=== PATIENT | female | born 1995 | race American Indian/Alaskan Native ===

== ENCOUNTER 2018-01-04 17:46 | Inpatient (IN) | payer MEDICAID ==
[2018-01-04 18:20] VITALS: BMI 21.9
[2018-01-04] MEDS ORDERED: Penicillin G 5 Million Unit Vial IVPB ONE (20:43)
--- NOTE | 2018-01-04 20:54 | OBADHP ---
Datetime: 01/04/2018 20:49 Admit Comment, IP Provider: @ 39.1 wks GA sent by clinic as pt had US BPP done a few days ago w ith BPP 04/21. Pt was instracuted to come to hospital for further monitoring. Pt dneis any ctx, lof, vb , +FM. Pt dneis anyehadceah, blurry vision, ruq/epigastric pain. During evaluatin pt was noted to hav e elevated bps up to and over 140/90s wtih repeat bpp 04/21. 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 hx of abnorma pap, fiborid, ovarin cyst, STI PMH: denies PSH: denies MEDS: pnv NKDA SHX: negative etoh/tboacc/drugs A/P @ 39.1 wks GA with elevated bloodpressure preecalmspia vs gestatina htn -admit to L+D -npo, ivf -admsisin, pih labs -cont toco adn efm -cervidl iol r/b/a/i dw patient -pain namangnet -bp parameters Pelvic Type - PN: Adequate Extremities - PN: Normal Abdomen - PN: Normal Back - PN: Normal Breast - PN: Not Done Lungs - PN: Normal Heart - PN: Normal Thyroid - PN: Not Done Neurologic - PN: Normal HEENT - PN: Normal General - PN: Normal Presentation-Admit: Vertex FHR - Baseline A Provider: 135 Membranes, Provider: Intact Contraction Comments Provider: irregular Gestation - Est Wks by US: 39.1 Vital Signs Provider: Reviewed Vital Signs Provider Details: BP elevated 130-142/80-90s IP Chief Complaint: Other NICHD Variability Prov Fetus A: Moderate 6-25bpm FHR Category Provider Fetus A: Category I NICHD Decel Fetus A IP Provider: None Dilatation, Provider: 0 Effacement, Provider: 0 Station, Provider: -3 Genitourinary Exam: Normal DTRs - PN: Normal EGA AdmitDate IP: 39.1 IP Adm Impression: Term, intrauterine IP Admit Plan: Admit to unit; Initiate labor induction protocol
[2018-01-04] MEDS ORDERED: Nalbuphine 20 mg/ml Inj (1 ml) IVP PRN (21:00)
--- NOTE | 2018-01-04 21:00 | US ---
EXAM: US After First Trimester, Transabdominal CLINICAL HISTORY: 22 years old, female; Screening exam; Routine us screening of fetus; Third; ; Additional info: [facility] TECHNIQUE: Real-time transabdominal obstetrical ultrasound of the maternal pelvis and a second or third trimester with image documentation. COMPARISON: No relevant prior studies available. FINDINGS: Fetus: Single live intrauterine gestation. Heart rate: heart rate of 142 beats per minute. Presentation: Cephalic. Placenta: Fundal placenta. No placenta previa or abruption. Amniotic fluid: Normal. WIL = 11.7 cm. Anatomy: Umbilical cord about neck, cannot exclude nuchal cord. BIOMETRICS Gestational age: Estimated gestational age of 38 weeks 1 day by measurements. DIANA: 01/17/2018 by ultrasound. EFW: Estimated weight of 3308 g. BPD: 9.5 cm, correlating with 38 weeks 5 days. HC: 33.5 cm, correlating with 38 weeks 2 days. AC: 33.5 cm, correlating with 37 weeks 3 days. FL: 7.4 cm, correlating with 38 weeks 0 days. MATERNAL: Uterus: Unremarkable. No myometrial mass. Cervix: No cervical dilatation or effacement. Free fluid: No free fluid. IMPRESSION: 1. Single live intrauterine gestation. 2. Umbilical cord about neck, cannot exclude nuchal cord. EXAM: US Biophysical Profile Without Non-Stress Testing CLINICAL HISTORY: 22 years old, female; Screening exam; Routine us screening of fetus; Third; ; Additional info: [facility] TECHNIQUE: Real-time ultrasound of the maternal pelvis for biophysical profile evaluation with image documentation. COMPARISON: No relevant prior studies available. FINDINGS: breathing movements: Present. Score 2/2. Gross body movements: Present. Score 2/2. tone: Present. Score 2/2. Qualitative amniotic fluid volume: Within normal limits. Score 2/2. IMPRESSION: Normal biophysical profile ultrasound. Score 8/8.
[2018-01-04] MEDS: Lactated Ringer's 1,000 ML IV SCH (21:15)
[2018-01-04 21:33] LABS: BASO % 0.5 % (0.0-2.0); EOS # 0.2 K/uL (0.0-0.7); EOS % 1.8 % (0.0-4.0); HEMOGLOBIN 12.1 g/dL (11.0-16.0); LYMPH # 1.5 K/uL (1.0-4.3); LYMPH % 16.8 % (20.0-40.0); MEAN CELL VOLUME 97.8 fL (81.0-99.0); MEAN CORPUSCULAR HEMOGLOBIN 32.5 pg (27.0-31.0); MEAN CORPUSCULAR HGB CONC 33.3 g/dL (33.0-37.0); MEAN PLATELET VOLUME 9.5 fL (7.2-11.7); MONO # 0.6 K/uL (0.0-0.8); MONO % 6.3 % (0.0-10.0); NEUT # 6.6 K/uL (1.8-7.0); NEUT % 74.6 % (50.0-75.0); NRBC % 0.2 % (0.0-2.0); RBC 3.71 Mil/uL (3.80-5.20); RED CELL DISTRIBUTION WIDTH 14.6 % (11.5-14.5); WHITE BLOOD COUNT 8.9 K/uL (4.8-10.8)
[2018-01-04 21:39] LABS: SQUAMOUS EPITHIAL 9 /hpf (0-5); URINE BACTERIA RARE (<OCC); URINE BILIRUBIN NEGATIVE (NEGATIVE); URINE BLOOD NEGATIVE (NEGATIVE); URINE CLARITY Hazy (Clear); URINE COLOR Straw (YELLOW); URINE GLUCOSE (UA) NORMAL (Normal); URINE LEUKOCYTE ESTERASE TRACE Leu/uL (Negative); URINE PROTEIN NEGATIVE (NEGATIVE); URINE UROBILINOGEN NORMAL mg/dL (0.2-1.0)
[2018-01-04 21:45] LABS: INR 0.9; PROTHROMBIN TIME 9.9 SECONDS (9.7-12.2)
[2018-01-04 21:46] LABS: ALB/GLOB RATIO 0.9 (1.0-2.1); ALBUMIN 4.1 g/dL (3.5-5.0); ALT/SGPT 11 U/L (9-52); AST/SGOT 38 U/L (14-36); BLOOD UREA NITROGEN 4 mg/dL (7-17); CALCIUM 9.2 mg/dl (8.6-10.4); GFR AFRICAN-AMERICAN > 60; GFR NON-AFRICAN AMERICAN > 60; URIC ACID 5.6 mg/dL (2.2-7.5)
[2018-01-04 21:56] LABS: RAPID PLASMA REAGIN NONREACTIVE (NONREACTIVE)
[2018-01-05] MEDS ORDERED: DiphenhydrAMINE 50 mg/ml Inj ONE (01:14)
[2018-01-05] MEDS ORDERED: Nalbuphine 20 mg/ml Inj (1 ml) ONE (01:14)
[2018-01-05] MEDS: DiphenhydrAMINE 50 mg/ml Inj IVP PRN (01:15)
[2018-01-05] MEDS ORDERED: Magnesium Sulfate 4 gm/100 ml 4 GM/100 ML BAG IVPB ONE (10:05)
[2018-01-05] MEDS ORDERED: Magnesium Sulfate 20 gm 20,000 MG/500 ML BAG IV ONE ×2 (10:09→22:44)
[2018-01-05] MEDS ORDERED: Magnesium Sulfate 20 gm 20 GM/500 ML BAG IV SCH (10:45)
[2018-01-05 10:46] LABS: BASO # 0.1 K/uL (0.0-0.2); BASO % 0.4 % (0.0-2.0); EOS # 0.1 K/uL (0.0-0.7); EOS % 0.5 % (0.0-4.0); HEMOGLOBIN 11.3 g/dL (11.0-16.0); LYMPH # 1.3 K/uL (1.0-4.3); LYMPH % 10.7 % (20.0-40.0); MEAN CORPUSCULAR HEMOGLOBIN 32.4 pg (27.0-31.0); MEAN CORPUSCULAR HGB CONC 33.4 g/dL (33.0-37.0); MEAN PLATELET VOLUME 9.2 fL (7.2-11.7); MONO # 0.8 K/uL (0.0-0.8); MONO % 6.5 % (0.0-10.0); NEUT # 9.9 K/uL (1.8-7.0); NEUT % 81.9 % (50.0-75.0); RBC 3.5 Mil/uL (3.80-5.20); RED CELL DISTRIBUTION WIDTH 14.5 % (11.5-14.5); WHITE BLOOD COUNT 12.1 K/uL (4.8-10.8)
[2018-01-05 11:04] LABS: INR 0.9; PROTHROMBIN TIME 10.1 SECONDS (9.7-12.2)
[2018-01-05 11:06] LABS: ALBUMIN 3.9 g/dL (3.5-5.0); ALT/SGPT 7 U/L (9-52); AST/SGOT 27 U/L (14-36); BLOOD UREA NITROGEN 4 mg/dL (7-17); GFR AFRICAN-AMERICAN > 60; GFR NON-AFRICAN AMERICAN > 60; URIC ACID 5.6 mg/dL (2.2-7.5)
[2018-01-05] MEDS: Magnesium Sulfate 20 gm 20 GM/500 ML BAG IV SCH ×2 (16:55→22:45)
[2018-01-05] MEDS ORDERED: Oxytocin 30 UNIT 30 UNITS/500 ML BAG IV PRN (22:08)
[2018-01-05] MEDS ORDERED: Oxytocin 30 UNIT 30 UNITS/500 ML BAG IV ONE (22:44)
[2018-01-05] MEDS: Lactated Ringer's 1,000 ML IV SCH (22:45)
--- NOTE | 2018-01-06 07:20 | OBPN ---
Datetime: 01/06/2018 07:18 IP Procedures: Artificial ROM; Sterile Vag Exam FHR - Baseline A Provider: 130 IP Progress Note Comment: pt was examined at bed side, ve 2/60/-2 arom cleaer cont pitocin will revaluate in 4 hrs and make a decision NICHD Accel Fetus A IP Provider: 15X15 FHR Category Provider Fetus A: Category I NICHD Variability Prov Fetus A: Moderate 6-25bpm Dilatation, Provider: 2 Effacement, Provider: 60 Station, Provider: -2
[2018-01-06] MEDS ORDERED: Dextrose 5%/Lactated Ringer's 1,000 ML IV SCH (09:00)
[2018-01-06] MEDS ORDERED: Sodium Citrate/Citric Acid 15 ml Sol PO ONE (09:17)
--- NOTE | 2018-01-06 09:17 | OBPN ---
Datetime: 01/06/2018 09:14 IP Progress Impression: Non-reassuring heart rate IP Procedures: Sterile Vag Exam IP Progress Plan: Continue present management Contraction Comments Provider: q1-3 FHR - Baseline A Provider: 130 IP Progress Note Comment: pt was examined at bed side fhr 13 min gokul ve 2/60/-2 stop pitocin primary c/s called. r/a/b Vital Signs Provider: Reviewed; Within Normal Limits NICHD Variability Prov Fetus A: Minimal - Undetectable to <5bpm Dilatation, Provider: 2 Effacement, Provider: 70 Station, Provider: -2
[2018-01-06] MEDS ORDERED: Sodium Citrate/Citric Acid 15 ml Sol ONE (09:19)
[2018-01-06] MEDS ORDERED: cefOXitin IV 2 gm in Saline 2 GM/50 ML BAG IVPB ONE (09:19)
[2018-01-06] MEDS ORDERED: Oxytocin 10 Units/ml Inj ONE (09:27)
[2018-01-06] MEDS ORDERED: Morphine 1 mg/ml preservative-free Inj(Duramorph) ONE (09:34)
--- NOTE | 2018-01-06 10:15 | OBPN ---
Datetime: 01/04/2018 20:49 IP Progress Note Comment: Cervidil removed at 10:00am. Pt still closed. speculum was inserted, secon d cervidil inserted. PT closed/long/hi
--- NOTE | 2018-01-06 10:15 | OBPN ---
Datetime: 01/04/2018 20:49 IP Progress Plan Other: Cervidil removed @ 10:00pm IP Progress Impression: Normal progression of labor; Gest. HTN/PreEclampsia/Eclampsia IP Informed Consent Obtain: Induction of Labor; Risks, Benefits and Alternatives Discussed IP Progress Plan: Induction; Cervical Ripening; Anticipate Vaginal Delivery FHR - Baseline A Provider: 130s IP Progress Note Comment: Cervidil #2 removed at @ 10:03pm. SVE 2/80/-2. Start oxytocin. Re peat Mag level sent. Currently mag at 1mu/min Vital Signs Provider Details: BP stable 144/85. Asymptomatic NICHD Accel Fetus A IP Provider: 15X15 Dilatation, Provider: 2 Effacement, Provider: 80 Station, Provider: -2
--- NOTE | 2018-01-06 10:17 | OBPN ---
Datetime: 01/04/2018 20:49 IP Progress Impression: Gest. HTN/PreEclampsia/Eclampsia IP Informed Consent Obtain: Induction of Labor IP Progress Plan: Induction; Cervical Ripening Membranes, Provider: Intact Contraction Comments Provider: irregular FHR - Baseline A Provider: 135 Gestation - Est Wks by US: 39.1 Presentation-Admit: Vertex IP Progress Note Comment: new onset elevated BPs -> will start mag sulfate. repeat PIH labs Vital Signs Provider: Reviewed Vital Signs Provider Details: BP elevated 150-160/80-90s. FHR Category Provider Fetus A: Category I NICHD Variability Prov Fetus A: Moderate 6-25bpm Dilatation, Provider: 0 Effacement, Provider: 0 Station, Provider: -3 NICHD Decel Fetus A IP Provider: None Signature: evelin portillo
--- NOTE | 2018-01-06 11:43 | OBDS ---
DELIVERY PERSONNEL Delivery Doctor: Bobby Nash MD Scrub Nurse: Stephanie Dillon RN Mill Recorder: Anjali Flores RN Anesthesiologist: Dr. Carty MATERNAL INFORMATION Delivery Anesthesia: Spinal Medications in Delivery: oxytocin 20 u LR 1L, Estimated Blood Loss (ml): 800 Placenta Cultured: Yes Maternal Complications: Other Other Maternal Complications: ELEVATED BLOOD PRESSURE RN Comments: Primary LTC/S to alive boy,cried immediately,dried,stimulate,no abnormalities,a ttended by Dr. Patino, 9/9.Skin to skin w/in 10 minutes with IBCLC..Attempting to breastfeed,s table Provider Comments: baby deliverd on dop. end clean 9/9 no com LABOR SUMMARY EDC: 01/10/2018 00:00 No. Babies in Womb: 1 Attempted: No Labor Anesthesia: Intrathecal LABOR INFORMATION Cervical Ripening Agents: Cervidil (Annotations: cervidil removed) Other Ripening Agents: cervidil 10mg inserted intravaginally by dr portillo with use of speculum and ring forceps Oxytocin: Induction Group B Beta Strep: Negative Antibiotics # of Doses: 2 GM Mefoxin Antibiotics Time of Last Dose: 09:58 MEMBRANES Membranes Rupture Method: Spontaneous Rupture of Membranes: 01/06/2018 07:20 Length of Rupture (hrs): 2.97 Amniotic Fluid Color: Clear Amniotic Fluid Amount: Scant Amniotic Fluid Odor: Normal STAGES OF LABOR Stage 3 hrs: 0 Stage 3 min: 1 BABY A INFORMATION Infant Delivery Date/Time: 01/06/2018 10:18 Method of Delivery: Born in Route : No : N/A Forceps: N/A Vacuum Extraction: N/A Shoulder Dystocia : No SHOULDER DYSTOCIA BABY A Infant Delivery Date/Time: 01/06/2018 10:18 PRESENTATION/POSITION BABY A Presentation: Cephalic Cephalic Presentation: Vertex Vertex Position: DOP Breech Presentation: N/A PLACENTA INFORMATION BABY A Placenta Delivery Time : 01/06/2018 10:19 Placenta Method of Delivery: Manual Removal Placenta Status: Delivered SCORES BABY A Heart Rate 1 min: >100 bpm Resp Effort 1 min: Good Cry Reflex Irritability 1 min: Cough or Sneeze or Pulls Away Muscle Tone 1 min: Active Motion Color 1 min: Body [place], Extremities Blue SCORE 1 MIN: 9 Heart Rate 5 min: >100 bpm Resp Effort 5 min: Good Cry Reflex Irritability 5 min: Cough or Sneeze or Pulls Away Muscle Tone 5 min: Active Motion Color 5 min: Body [place], Extremities Blue SCORE 5 MIN: 9 INFANT INFORMATION BABY A Gestational Age at Delivery: 39.3 Gestational Status: Term Infant Outcome : Liveborn Condition : Stable Sex: Male IDENTIFICATION/MEDS BABY A ID Band Number: [id number] Sensor Applied: Yes Sensor Number: [id number] Sensor Location : Left Leg; Left Arm Vitamin K Given : Not Given Erythromycin Given: Not Given WEIGHT/LENGTH BABY A Birthweight (gms): 3070 Weight (lb): 6 Weight (oz): 12 Infant Length Inches: 19.50 Infant Length cms: 49.5 CORD INFORMATION BABY A No. Cord Vessels: 3 Nuchal Cord : Around Neck x1, Loose Cord pH Baby Venous: yes Cord Blood Taken: Yes Suction: Mouth; Nose ASSESSMENT BABY A Infant Complications: None Physical Findings at Delivery: Within Normal Limits Infant Respirations: Appears Normal Bottle And Glass Inspector/ALS Called : Yes Care By: Carey Transferred To: Remains with Mother
[2018-01-06] MEDS: Magnesium Sulfate 20 gm 20 GM/500 ML BAG IV SCH (12:00)
[2018-01-06] MEDS ORDERED: cefOXitin 2 GM in Sodium Chloride 0.9% 100 ML IVPB ONE (12:00)
[2018-01-06] MEDS ORDERED: DiphenhydrAMINE 50 mg/ml Inj ONE (13:39)
[2018-01-06] MEDS: DiphenhydrAMINE 50 mg/ml Inj IVP PRN (13:42)
[2018-01-06] MEDS: Simethicone 80 mg Chewtab PO SCH ×2 (13:45→17:13)
[2018-01-06] MEDS ORDERED: DiphenhydrAMINE 50 mg/ml Inj IVP PRN (17:11)
--- NOTE | 2018-01-06 19:53 | PCM.SURG1 ---
Surgeon's Initial Post Op Note - Surgeon's Notes Surgeon: dr calvillo Air Value Tester: dr philip Type of Anesthesia: Spinal Anesthesia Administered By: dr rodríguez Pre-Operative Diagnosis: 22 yr m with failed induction/non reasuring tracing /preeclampsia Operative Findings: see the op reort Post-Operative Diagnosis: same Operation Performed: primary section Specimen/Specimens Removed: cord blood. cord gas. placente Estimated Blood Loss: EBL {In ML}: 800 Blood Products Given: N/A Drains Used: No Drains, Chest Tubes Post-Op Condition: Good Date of Surgery/Procedure: 01/06/18 Time of Surgery/Procedure: 12:00
[2018-01-06] MEDS ORDERED: Magnesium Sulfate 20 gm 20,000 MG/500 ML BAG IV ONE (21:28)
--- NOTE | 2018-01-07 06:08 | OP ---
PROCEDURE DATE: 01/06/2018 PREOPERATIVE DIAGNOSIS: A 22-years old 1, para 0 at 39 weeks with a failed induction and nonreassuring tracing. POSTOPERATIVE DIAGNOSIS: A 22-years old 1, para 0 at 39 weeks with a failed induction and nonreassuring tracing. SURGEON: Bobby Nash MD HOUSE SUPERINTENDENT: Socrates Arrieta MD who was present throughout the surgical exposure, and pushing at the time of delivery. TYPE OF ANESTHESIA: Spinal. ANESTHESIA ADMINISTERED BY: Lino Danielson MD COMPLICATIONS: None. FINDINGS: Baby boy, Apgars 9 and 9. DESCRIPTION OF PROCEDURE: After informed consent was obtained, the patient was brought to the operating room, placed on the table where spinal anesthesia was given. When the spinal anesthesia was given, she was prepped and draped in normal sterile fashion. At the site of 2 cm above the pubic bone, an incision was made with a knife, the subcutaneous cut with a Bovie. The fascia was excised on both sides using curved Anders scissors. Rectus muscles were . Peritoneum was incised and we went into the abdominal cavity. Bladder blade was placed. Bladder flap was created. Lower uterine segment incision was made with a knife. It was extended using Bovie and curved Anders scissors. Baby delivered in YIFAN position. Cord was clamped and cut. Baby was handed to the awaiting electrical engineering teacher. Cord was clamped around the baby neck. All cord gas was taken. Placenta delivered manually and sent off for pathology. The uterus was exteriorized and cleared of all clots and debris. The uterine incision was closed using #1 Vicryl in running interlocking fashion. Second layer was closed with the same stitch. Uterine incision looked hemostatic. Cul-de-sac was cleared of all the clots and debris. Uterus was returned back to the abdominal cavity. Gutters were cleared of all the clots and debris. After that, incision looked better and hemostatic. Peritoneum was closed using 2-0 Vicryl in running interlocking fashion. The muscle was closed using 2-0 Vicryl in running interlocking fashion. Fascia was closed using 1 Vicryl in running interlocking fashion. Skin was closed using sabrina. The patient tolerated the procedure well. Lap, sponge, and instrument counts were correct x2. Bobby Nash MD [facility] # [id number]
[2018-01-07] MEDS ORDERED: Oxycodone/Acetaminophen 5/325 mg Tab ONE (08:26)
[2018-01-07] MEDS: Oxycodone/Acetaminophen 5/325 mg Tab PO PRN ×3 (08:28→22:33)
[2018-01-07] MEDS ORDERED: Bisacodyl 5mg EC Tab PO ONE (09:19)
[2018-01-07] MEDS: Simethicone 80 mg Chewtab PO SCH ×4 (10:59→22:35)
--- NOTE | 2018-01-07 16:04 | OBPPN ---
Datetime: 01/07/2018 15:50 PP Pain Prov: Within normal limits PP Nausea Prov: Denies PP Flatus Prov: No PP BM Prov: No PP Breasts Prov: Normal PP Heart Prov: Normal PP Lungs Prov: Normal PP Abdomen/Uterus Prov: Normal PP Lochia Prov: Normal PP Vulva/Perineum Prov: Not Done PP CVA Tenderness Prov: Normal PP Extremities Prov: Normal PP C/S Incision Prov: Normal PP Progress Prov: Normal PP Comments Phys Exam Prov: Breasts: no cracked nipples Abdomen: (+) BS; slightly distended. Soft. Fundus firm, mobile, non tender, at umbilicus. Incisio n with sabrina - clean, dry and intact. Moderatel lochia rubra. Extremities: Venodynes in place. No pedal edema, or cyanosis All other systems reviewed and are negative PP Impression Prov: Normal progression PP Plan Prov: Continue present management PP Progress Note Prov: Patient was seen and examined approximately 1015 hours; received in LDR#2. D enies headaches, blurred vision, psots, nausea or vomiting. Not yet OOB. . Desires circ umcision P.E.: as above. Small, in NAD. Awake, alert, and oriented to time, person and place. Pleasant and cooperative. - magnesium level 0600 hours = 4.2 Assessment: 22 y.o. P1, S/P primary LTCS for failed IOL; mild pre-eclampsia. Afebrile, vital sign s. Diuresing adequately. Labs are stable/ wnl. Clinically stable. Plan: 1) Consent obtained for circumcision 2) Advance to regular diet 3) Anticpate discontinue magnesium 4) Patient encouraged: OOB and ambulate 5) CBC in AM Vital Signs Provider PP: Reviewed; Within Normal Limits
[2018-01-08] MEDS: Oxycodone/Acetaminophen 5/325 mg Tab PO PRN (08:14)
--- NOTE | 2018-01-08 08:54 | OBPPN ---
Datetime: 01/08/2018 08:41 PP Pain Prov: Within normal limits PP Nausea Prov: Denies PP Flatus Prov: Yes PP BM Prov: No PP Breasts Prov: Normal PP Heart Prov: Normal PP Lungs Prov: Normal PP Abdomen/Uterus Prov: Normal PP Lochia Prov: Normal PP Vulva/Perineum Prov: Not Done PP CVA Tenderness Prov: Normal PP Extremities Prov: Normal PP C/S Incision Prov: Normal PP Progress Prov: Normal PP Comments Phys Exam Prov: Breasts: no cracked nipples. Mildly engorged Abdomen: (+) BS. Soft. Non distended. Fundus firm, non tender, mobile, at the umbilicus. Mild loci juan rubra. Extremities: no calf tenderness or edema All other sytems reviewed and are negative PP Impression Prov: Normal progression PP Plan Prov: Continue present management PP Progress Note Prov: Patient seen and evaluated at 0720 hours - received in room 461. Exclusively - tired. (+) incisional pain, pain scale 5/10; relieved with pain meds. Denies headach e, blurred vision, spots. Amulating and voiding without difficulty. (+) faltus; (-) BM P.E.: as above. Small, in NAD. Awake, alert, oriented to time, person and place. Pleasant and coop erative Assessment: POD#2, 22 y.o. P1, S/P primary LTCS for failed IOL. Mild pre-eclampsia - S/P magnesium x 24 hours. BPs normal; no other stigmata of pre-eclampsia at this time. Afebrile; other vital signs stable. Returning GI and functions. Clinically stable. Plan: 1) Check CBC results 2) Encourage ambulation 3) Continue present management 4) Anticipate discharge home 01/09/18 Vital Signs Provider PP: Reviewed; Within Normal Limits
[2018-01-08] MEDS: Simethicone 80 mg Chewtab PO SCH ×4 (09:16→23:05)
[2018-01-08 10:14] LABS: HEMOGLOBIN 8.3 g/dL (11.0-16.0); MEAN CELL VOLUME 97.8 fL (81.0-99.0); MEAN CORPUSCULAR HEMOGLOBIN 33.6 pg (27.0-31.0); MEAN CORPUSCULAR HGB CONC 34.4 g/dL (33.0-37.0); MEAN PLATELET VOLUME 9.3 fL (7.2-11.7); RBC 2.47 Mil/uL (3.80-5.20); RED CELL DISTRIBUTION WIDTH 14.6 % (11.5-14.5); WHITE BLOOD COUNT 9.6 K/uL (4.8-10.8)
[2018-01-08 13:48] LABS: BASO % 0.3 % (0.0-2.0); EOS # 0.2 K/uL (0.0-0.7); EOS % 2.3 % (0.0-4.0); LYMPH % 10.8 % (20.0-40.0); MEAN CELL VOLUME 97.2 fL (81.0-99.0); MEAN CORPUSCULAR HEMOGLOBIN 34.2 pg (27.0-31.0); MEAN CORPUSCULAR HGB CONC 35.2 g/dL (33.0-37.0); MEAN PLATELET VOLUME 8.5 fL (7.2-11.7); MONO # 0.6 K/uL (0.0-0.8); MONO % 7.1 % (0.0-10.0); NEUT # 7.2 K/uL (1.8-7.0); NEUT % 79.5 % (50.0-75.0); RBC 2.33 Mil/uL (3.80-5.20); RED CELL DISTRIBUTION WIDTH 14.2 % (11.5-14.5); WHITE BLOOD COUNT 9.1 K/uL (4.8-10.8)
[2018-01-09 07:23] LABS: BASO % 0.4 % (0.0-2.0); EOS # 0.3 K/uL (0.0-0.7); EOS % 3.9 % (0.0-4.0); HEMOGLOBIN 8.2 g/dL (11.0-16.0); LYMPH # 1.4 K/uL (1.0-4.3); LYMPH % 16.5 % (20.0-40.0); MEAN CELL VOLUME 97.2 fL (81.0-99.0); MEAN CORPUSCULAR HEMOGLOBIN 33.4 pg (27.0-31.0); MEAN CORPUSCULAR HGB CONC 34.4 g/dL (33.0-37.0); MEAN PLATELET VOLUME 8.9 fL (7.2-11.7); MONO # 0.4 K/uL (0.0-0.8); NEUT # 6.2 K/uL (1.8-7.0); NEUT % 74.2 % (50.0-75.0); RBC 2.46 Mil/uL (3.80-5.20); RED CELL DISTRIBUTION WIDTH 14.4 % (11.5-14.5); WHITE BLOOD COUNT 8.3 K/uL (4.8-10.8)
[2018-01-09] MEDS: Simethicone 80 mg Chewtab PO SCH ×4 (10:02→21:24)
--- NOTE | 2018-01-09 10:31 | OBDCSUM ---
Datetime: 01/09/2018 09:06 Discharged to, Provider: Home Follow up at, Provider: jesica Disch Instr Activity: Normal activity Disch Instr Diet: Regular Discharge Diagnosis, Provider: Term Delivered Discharge Time: 01/09/2018 12:00 Follow up in weeks, Provider: 2-3days Discharge Instruct Comment, Prov: pp, postop, and preeclamp precautions Disch Activity Restrictions: No exercising; No lifting; No sexual activity; Nothing in vagina - Inte rcourse, tampons, douche Discharge Comment, Provider: pt to f/u in clinic 2-3days for staple removl and bp f/u no nsaids- tylenol and percocet for pain. Contraception after Delivery: Undecided
[2018-01-09] MEDS ORDERED: Oxycodone/Acetaminophen 5/325 mg Tab PO PRN ×2 (14:36)
[2018-01-10] MEDS: Simethicone 80 mg Chewtab PO SCH ×4 (09:12→21:59)
--- NOTE | 2018-01-10 09:19 | OBPPN ---
Datetime: 01/10/2018 09:12 PP Pain Prov: Within normal limits PP Nausea Prov: Denies PP Flatus Prov: Yes PP BM Prov: Yes PP Breasts Prov: Normal PP Heart Prov: Normal PP Lungs Prov: Normal PP Abdomen/Uterus Prov: Normal PP Lochia Prov: Normal PP Extremities Prov: Normal PP C/S Incision Prov: Normal PP Progress Prov: Not Applicable PP Comments Phys Exam Prov: engorged PP Impression Prov: Normal progression PP Progress Note Prov: s: denies juan, scotomata, blurred va, midepig/ruq pain; +breast discomfort due to engorgement i: failed induction for preeclampsa pp bp's elev p: continue labetolol observe bps for possible d/c today preecalmptic precaut d/w pt Vital Signs Provider PP: Reviewed Vital Signs Provider Details PP: 130-150/90-100 Datetime: 01/09/2018 10:22 PP CVA Tenderness Prov: Not Done IP PP Procedures: None
--- NOTE | 2018-01-10 14:31 | CP.PCM.CON ---
History of Present Illness - History of Present Illness History of Present Illness: CC: Post- hypertension HPI: Patient is a 22 year old S/P due to failed induction and with failed induction/non reassuring tracing and pre-eclampsia POD#4, with no complication. Medicine consultation was placed due to asymptomatic post- hypertension. Patient started on labetalol 100mg BID yesterday at 1pm. Patient denies headache, palpitations, chest pain, blurry vision, nausea, vomiting or right upper quadrant pain. Patient admits to well-controlled pain. stock analyst: Dr. Brock PMHx: Denies PSHx: Denies FHx: Denies Medication: vitamins Allergies: NKDA Social Hx: Lives with family, works at [email or web address]. Denies current or former tobacco/ ETOH and illicit drug use Review of Systems - Constitutional Constitutional: absent: Chills, Fever, Headache - EENT Eyes: absent: Blind Spots, Blurred Vision, Change in Vision Ears: absent: Dizziness - Cardiovascular Cardiovascular: absent: Chest Pain, Chest Pain at Rest, Chest Pain with Activity , Diaphoresis, Dyspnea, Dyspnea on Exertion, Leg Edema, Lightheadedness, Palpitations, Syncope - Respiratory Respiratory: absent: Dyspnea, Dyspnea on Exertion - Gastrointestinal Gastrointestinal: absent: Abdominal Pain, Nausea, Vomiting - Endocrine Endocrine: absent: Fatigue, Palpitations Meds Allergies/Adverse Reactions: Allergies Allergy/AdvReac Type Severity Reaction Status Date / Time No Known Allergies Allergy Verified 01/04/18 18:11 - Medications Medications: Current Medications Acetaminophen (Tylenol 325mg Tab) 650 mg PO Q6 PRN PRN Reason: Pain, Mild (1-3) Diphenhydramine HCl (Benadryl) 25 mg IVP DAILY@ONCE PRN Last Admin: 01/06/18 13:42 Dose: 25 mg Diphenhydramine HCl (Benadryl) 25 mg IVP STAT PRN PRN Reason: Itching / Pruritus Labetalol HCl (Trandate) 200 mg PO BID KEESHA Oxycodone/Acetaminophen (Percocet 5/325 Mg Tab) 1 tab PO Q4H PRN PRN Reason: Pain, moderate (4-7) Stop: 01/12/18 14:37 Oxycodone/Acetaminophen (Percocet 5/325 Mg Tab) 2 tab PO Q4H PRN PRN Reason: Pain, severe (8-10) Stop: 01/12/18 14:37 Simethicone (Mylicon Chew Tab) 80 mg PO QID KEESHA Last Admin: 01/10/18 14:13 Dose: 80 mg Physical Exam - Constitutional Appears: No Acute Distress - Head Exam Head Exam: ATRAUMATIC, NORMAL INSPECTION - Eye Exam Eye Exam: EOMI, Normal appearance - ENT Exam ENT Exam: Mucous Membranes Moist - Respiratory Exam Respiratory Exam: Clear to Auscultation Bilateral, NORMAL BREATHING PATTERN. absent: Prolonged Expiratory Phase, Rhonchi, Wheezes, Respiratory Distress - Cardiovascular Exam Cardiovascular Exam: REGULAR RHYTHM, +S1, +S2 - GI/Abdominal Exam GI & Abdominal Exam: Normal Bowel Sounds, Soft. absent: Diminished Bowel Sounds , Distended, Firm, Guarding Additional comments: S/p POD #[address] Incision clean, dry and intact - Extremities Exam Extremities exam: Positive for: normal inspection. Negative for: calf tenderness, pedal edema - Neurological Exam Neurological exam: Alert, Oriented x3 Results - Vital Signs Recent Vital Signs: Last Vital Signs Temp 99.8 F H 01/10/18 07:33 Pulse 95 H 01/10/18 07:33 Resp 20 01/10/18 07:33 BP 156/103 H 01/10/18 14:09 Pulse Ox 100 01/10/18 07:33 - Labs Result Diagrams: 01/09/18 07:15 01/05/18 10:35 Assessment & Plan - Assessment and Plan (Free Text) Assessment: 22 y/o , S/P due to failed induction and with failed induction/ non reassuring tracing and pre-eclampsia POD#4 with Asymptomatic post- HTN Plan: 1. Increase labetalol dose from 100mg PO BID ----> 200mg PO bid 2. If blood pressure is not control on 200mg PO BID, frequency can be increased to TID as maximum dose is 2400mg/day 3. Nifedipine ER can be considered as well. 4. Medicine recommendation as stated above 5. Patient instructed to follow up with PMD or Obgyn Specialist closely upon discharge and to monitor BP at home 6. Thank you for the consult, medicine team will sign off at this time All plans and management discussed with Dr. Watson
[2018-01-11 08:07] VITALS: RESP 18
--- NOTE | 2018-01-11 09:19 | OBDCSUM ---
Datetime: 01/11/2018 08:12 Discharged to, Provider: Home Follow up at, Provider: jesica Disch Instr Activity: Normal activity Disch Instr Diet: Restricted, specify Discharge Instructions, Provider: Routine instructions given Discharge Diagnosis, Provider: Term Delivered Discharge Time: 01/11/2018 13:00 Follow up in weeks, Provider: 5 days Disch Referrals: None Contraception discussed, Prov: Yes Disch Activity Restrictions: No lifting; Minimize walking; Minimize stair-climbing; No sexual activi ty; Nothing in vagina - [place], tampons, douche Discharge Comment, Provider: For astapel removal and bp check if headahce, blurry vsin, abdoina pain, fever, chilsl, anuse, voitng, go to nearst er Datetime: 01/09/2018 09:06 Disch Instr Activity: Normal activity Disch Instr Diet: Regular
--- NOTE | 2018-01-11 09:19 | OBPPN ---
Datetime: 01/11/2018 07:46 PP Pain Prov: Within normal limits PP Nausea Prov: Denies PP Flatus Prov: Yes PP BM Prov: Yes PP Breasts Prov: Not Done PP Heart Prov: Normal PP Lungs Prov: Normal PP Abdomen/Uterus Prov: Normal PP Lochia Prov: Not Done PP Vulva/Perineum Prov: Not Done PP CVA Tenderness Prov: Normal PP Extremities Prov: Normal PP C/S Incision Prov: Normal PP Impression Prov: Normal progression PP Plan Prov: Continue present management PP Progress Note Prov: Patient was seen and examined at bedside in no acute distress. Patient report s feeling well. She states she had a mild headache overnight, but currently denies having aheadache, changes in vision, palpitations, dizziness. The patient states she is passing flatus and having salvatore l bowel movements; last BM was last night. She denies chest pain, dyspnea, palpitations, abdominal pa in, nausea, vomiting, fevers, dysuria. VS- BP elevated, however, improving. on labetoel PE: HEENT: normocephalic, atraumatic Cardio: normal S1, S2; no murmurs, rubs, gallops Pulm: CTA b/l, no wheezing/rhonchi/rales GI: normal bowel sounds, soft, nontender, nondistended; incision clean, dry, intact.no ruq /egiats pain VE: bhavana mlocal non tonder Ext: no edema or tenderness Neuro: aox3 Psych: normal mood, normal affect. Plan/assessment: - Increased Labetalol to 200mg PO TID for HTN; continue to monitor - Continue Tylenol prn for pain - Continue Feosol 325mg PO BID - Encouraged ambulation. pt seen adn examiend with resident s/p ptlcs with preeclampsia with elevated bp started onl ablateol increaed to labetaol 200mg TID iron /colace blodo loss anemia f/u am labs s/p medicone conslt appreicated antics posisble dc in PM with f/u with PMD/obfgyn 5 days bp recpiaton given Vital Signs Provider PP: Reviewed Vital Signs Provider Details PP: BP 120-160/80-100
[2018-01-11 09:20] LABS: BASO % 0.4 % (0.0-2.0); EOS # 0.2 K/uL (0.0-0.7); HEMOGLOBIN 8.4 g/dL (11.0-16.0); LYMPH # 1.2 K/uL (1.0-4.3); LYMPH % 16.7 % (20.0-40.0); MEAN CELL VOLUME 96.4 fL (81.0-99.0); MEAN CORPUSCULAR HEMOGLOBIN 32.9 pg (27.0-31.0); MEAN CORPUSCULAR HGB CONC 34.2 g/dL (33.0-37.0); MEAN PLATELET VOLUME 7.6 fL (7.2-11.7); MONO # 0.4 K/uL (0.0-0.8); MONO % 6.1 % (0.0-10.0); NEUT # 5.3 K/uL (1.8-7.0); NEUT % 73.8 % (50.0-75.0); RBC 2.54 Mil/uL (3.80-5.20); RED CELL DISTRIBUTION WIDTH 14.4 % (11.5-14.5); WHITE BLOOD COUNT 7.1 K/uL (4.8-10.8)
[2018-01-11] MEDS: Simethicone 80 mg Chewtab PO SCH ×2 (09:39→13:19)
[2018-01-11 09:44] LABS: ALB/GLOB RATIO 0.9 (1.0-2.1); ALBUMIN 3.3 g/dL (3.5-5.0); ALT/SGPT 20 U/L (9-52); AST/SGOT 32 U/L (14-36); BLOOD UREA NITROGEN 3 mg/dL (7-17); CALCIUM 8.6 mg/dl (8.6-10.4); GFR AFRICAN-AMERICAN > 60; GFR NON-AFRICAN AMERICAN > 60
[2018-01-11 21:42] VITALS: BP 136/86; PULSE 84; TEMP 97; O2SAT 100
== END 2018-01-11 16:35 | disposition home or self-care (01) | DRG 650 ==
LOC: C.EROB 17:46 → C.4D 20:50 → C.4M 01-07 14:05
PROVIDERS: ADMIT Obstetrics & Gynecology; ATTEND Obstetrics & Gynecology
PROC: 10D00Z1 Extraction of Products of Conception, Low, Open Approach (ICD-10-PCS; principal; 2018-01-06)
PROC: 3E0P7VZ Introduction of Hormone into Female Reproductive, Via Natural or Artificial Opening (ICD-10-PCS; 2018-01-06)
DX: O13.4 Gestational [pregnancy-induced] hypertension without significant proteinuria, complicating childbirth (principal); O90.81 Anemia of the puerperium; D62 Acute posthemorrhagic anemia; O76 Abnormality in fetal heart rate and rhythm complicating labor and delivery; O61.9 Failed induction of labor, unspecified; O69.81X0 Labor and delivery complicated by cord around neck, without compression, not applicable or unspecified; O14.94 Unspecified pre-eclampsia, complicating childbirth; Z3A.39 39 weeks gestation of pregnancy; Z37.0 Single live birth